=== PATIENT | male | born 1960 | race Caucasian/White ===

== ENCOUNTER 2018-08-10 07:44 | Outpatient (CLI) | payer MEDICARE, BC ==
[~2018-08-10 07:44] MED LIST: ACETAMINOPHEN 325 MG TABLET PO PRN; DIPHENHYDRAMINE HCL 50 MG in NORMAL SALINE 50 ML IV PRN; NORMAL SALINE 250 ML IV PRN; NORMAL SALINE IV PRN; RITUXIMAB IV PRN
[2018-08-10 09:22] VITALS: BP 129/84
== END 2018-08-10 12:29 | disposition home or self-care (01) ==
LOC: II 07:44 → 5TH 09:17 → II 12:29
PROVIDERS: ATTEND Internal Medicine Hematology & Oncology
PROC: 3E0330M Introduction of Antineoplastic, Monoclonal Antibody, into Peripheral Vein, Percutaneous Approach (ICD-10-PCS; principal; 2018-08-10)
PROC: 3E033GC Introduction of Other Therapeutic Substance into Peripheral Vein, Percutaneous Approach (ICD-10-PCS; 2018-08-10)
DX: Z51.11 Encounter for antineoplastic chemotherapy (principal); C81.90 Hodgkin lymphoma, unspecified, unspecified site
CPT/HCPCS: 96413; 96415; 96367; A9270; J1200; J7040; J9312 ×2